=== PATIENT | male | born 1995 | race Asian ===

== ENCOUNTER 2019-05-17 13:17 | Inpatient (IN) | payer MEDICAID ==
[~2019-05-17] VITALS: Ht 170.2 cm; Wt 76.7 kg
[2019-05-17] VITALS (8 sets, daily range): BP systolic 93–128; BP diastolic 42–74
--- NOTE | 2019-05-17 13:20 | NUR ---
ED Nurse Note: pt was brought in by ambulance c/o syncope. pt stated that he is on a restaurant and suddenly fainted. denies head trauma, denies any pain. pt stated he loose consciousness. pt looks pale. pt stated he pass blood like stool last week and has history of blood transfusion for same reason. santhosh shah on bedside. will continue to monitor
--- NOTE | 2019-05-17 13:25 | NUR ---
ED Nurse Note: iv stablished on pt left ac, blood drawn and was sent to lab.
--- NOTE | 2019-05-17 13:34 | NUR ---
ED Nurse Note: ivf started and iv zofran given and pt able to tolerated well.
--- NOTE | 2019-05-17 13:50 | NUR ---
ED Nurse Note: pt was able to give urine sample and was sent to lab.
[2019-05-17 13:53] LABS: APPEARANCE,URINE CLEAR; BILIRUBIN, URINE NEGATIVE (NEGATIVE); COLOR,URINE PALE YELLOW; GLUCOSE, URINE (UA) NEGATIVE (NEGATIVE); KETONES,URINE NEGATIVE (NEGATIVE); LEUKOCYTE ESTERASE ,URINE NEGATIVE (NEGATIVE); NITRITE,URINE NEGATIVE (NEGATIVE); PH,URINE 6.5 (4.5-8.0); PROTEIN,URINE NEGATIVE (NEGATIVE); UROBILINOGEN,URINE NORMAL MG/DL (0.0-1.0)
[2019-05-17 13:57] LABS: ANION GAP 10 mmol/L (5-15); BLOOD UREA NITROGEN 9 mg/dL (7-18); CALCIUM 8.5 MG/DL (8.5-10.1); CARBON DIOXIDE 26 MMOL/L (21-32); CHLORIDE 108 MMOL/L (98-107); CREATININE 0.8 MG/DL (0.55-1.30); POTASSIUM 3.5 MMOL/L (3.5-5.1); SODIUM 144 MMOL/L (136-145)
--- NOTE | 2019-05-17 14:00 | NUR ---
ED Nurse Note: technical support manager on bedside.
[2019-05-17 14:12] LABS: ALANINE AMINOTRANSFERASE 15 U/L (12-78); ALBUMIN 3.7 G/DL (3.4-5.0); ALBUMIN/GLOBULIN RATIO 1.2 (1.0-2.7); ALKALINE PHOSPHATASE 36 U/L (46-116); ASPARTATE AMINO TRANSFERASE 18 U/L (15-37); BILIRUBIN,TOTAL 0.3 MG/DL (0.2-1.0)
--- NOTE | 2019-05-17 15:01 | NUR ---
ED Nurse Note: instrument and electrical technician on bedside
--- NOTE | 2019-05-17 15:11 | Diagnostic Imaging Report ---
Indication: Abdominal pain Technique: Grayscale and duplex Doppler imaging of the abdomen performed. Comparison: None Findings: The liver is unremarkable. Doppler interrogation of the main portal vein shows patency with hepatopedal, monophasic flow. There is no biliary ductal dilatation identified. CBD 3.7 mm. Gallbladder is unremarkable. Sonographic Bañuelos's sign was negative per technologist. There demonstrated part of the pancreas, aorta and IVC show no definite abnormalities. Both kidneys appear unremarkable. There is no hydronephrosis. IMPRESSION: No acute findings identified.
--- NOTE | 2019-05-17 15:12 | Diagnostic Imaging Report ---
Indication: Dyspnea Comparison: None A single view chest radiograph was obtained. Findings: Cardiomediastinal appearance is within normal limits for age. The lungs are clear. Pulmonary vascularity is appropriate. The diaphragmatic contour is smooth and costophrenic angles are sharp. No pleural effusions are identified. The bones are unremarkable. Impression: No acute findings
--- NOTE | 2019-05-17 15:15 | NUR ---
ED Nurse Note: pt went to ct with tech
--- NOTE | 2019-05-17 15:22 | NUR ---
ED Nurse Note: pt went back from ct
--- NOTE | 2019-05-17 15:51 | Diagnostic Imaging Report ---
Indication: Abdominal pain Technique: Continuous helical transaxial imaging of the abdomen and pelvis was obtained from the lung bases to the pubic symphysis during intravenous contrast administration. Coronal 2-D reformats were also obtained. Study obtained in a Siemens sensation [address] Automatic Exposure Control was utilized. Total Dose length Product (DLP): 572.[address] Dose Index Volume (CTDIvol): 10.75 mGy Comparison: None Findings: Normal retrocecal appendix is demonstrated. Somewhat poor contrast bolus is noted. The kidneys enhance normally. There is no hydronephrosis or stones. Gallbladder is unremarkable. The lung bases are clear. The liver and spleen and pancreas are unremarkable. There is no adrenal mass. Bowel gas pattern appears nonobstructive. Bladder is unremarkable. IMPRESSION: No acute findings The CT scanner at [facility] is accredited by the [employer] and the scans are performed using dose optimization techniques as appropriate to a performed exam including Automatic Exposure control.
[2019-05-17 15:54] LABS: INR 1.1 (0.9-1.1)
[2019-05-17 16:04] LABS: HEMATOCRIT 17.8 % (42.0-52.0); MEAN CORPUSCULAR VOLUME 61 FL (80-99); PLATELET COUNT 577 K/UL (150-450); RED BLOOD COUNT 2.89 M/UL (4.70-6.10); RED CELL DISTRIBUTION WIDTH 15.3 % (11.6-14.8); WHITE BLOOD COUNT 7.1 K/UL (4.8-10.8)
[2019-05-17 16:07] LABS: HEMOGLOBIN 4.8 G/DL (14.2-18.0)
--- NOTE | 2019-05-17 18:28 | NUR ---
ED Nurse Note: pt is admitted to hospital report given to hortencia staton
--- NOTE | 2019-05-17 18:35 | NUR ---
ED Nurse Note: pt jeremyas tranferd to floor, all belongings endorsed to enrique staton
--- NOTE | 2019-05-17 18:40 | NUR ---
NURSE NOTES: Received pt ,a new admission fr ED,brought to SDU per talya,awake,alert ,oriented,accompanied by LARRIMAN HELPER Le and a transporter in no resp distress ,no signs of pain or discomfort, alarm security or surveillance monitor showing SR,with ongoing Blood transfusion ,a unit of PRBC,tolerating well. skin warm and dry,and pale looking family members at bedside.
--- NOTE | 2019-05-17 19:00 | NUR ---
HAND-OFF: Report given to Stephen Salgado RN .
--- NOTE | 2019-05-17 19:20 | NUR ---
NURSE NOTES: Received patient from Serafin RN. Patient is awake and alert with no sign of acute distress. Room air, running PRBC and family at bed side. Bed at its lowest position, call light in reach and X2 bed rails up.
[2019-05-17] MEDS: D5NS 1,000 ML IV SCH (20:42)
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
[2019-05-18] VITALS: BP 96/49
[2019-05-18 02:43] LABS: HEMATOCRIT 24.1 % (42.0-52.0); HEMOGLOBIN 7.1 G/DL (14.2-18.0); MEAN CORPUSCULAR VOLUME 69 FL (80-99); PLATELET COUNT 516 K/UL (150-450); RED BLOOD COUNT 3.47 M/UL (4.70-6.10); RED CELL DISTRIBUTION WIDTH 23.7 % (11.6-14.8); WHITE BLOOD COUNT 5.6 K/UL (4.8-10.8)
[2019-05-18 02:49] LABS: ANION GAP 10 mmol/L (5-15); BLOOD UREA NITROGEN 8 mg/dL (7-18); CALCIUM 8.3 MG/DL (8.5-10.1); CARBON DIOXIDE 25 MMOL/L (21-32); CHLORIDE 109 MMOL/L (98-107); CREATININE 0.8 MG/DL (0.55-1.30); POTASSIUM 3.6 MMOL/L (3.5-5.1); SODIUM 143 MMOL/L (136-145)
[2019-05-18 04:00] VITALS: BP 119/59
[2019-05-18] MEDS: D5NS 1,000 ML IV SCH (04:39)
[2019-05-18] MEDS ORDERED: Bisacodyl EC 5mg tab ORAL ONE (06:45)
--- NOTE | 2019-05-18 06:46 | General Progress Note ---
Assessment/Plan Problem List: (1) Anemia ICD Codes: D64.9 - Anemia, unspecified SNOMED: [id number] (2) h/o bowel resection Assessment/Plan: stool ob transfuse one more unit fu CBC bowel regimen advance diet plan EGD and colonoscopy on Monday if needed Subjective ROS Limited/Unobtainable: Yes Allergies: Coded Allergies: No Known Allergies (Unverified , 05/17/19) Objective Last 24 Hour Vital Signs Date Time Temp Pulse Resp B/P (MAP) Pulse Ox O2 Delivery O2 Flow Rate FiO2 05/18/19 04:00 97.7 67 18 119/59 (79) 99 05/18/19 04:00 Room Air 05/18/19 03:50 55 05/18/19 00:00 97.1 59 16 96/49 (65) 100 05/18/19 00:00 Room Air 05/18/19 00:00 97.1 59 16 96/49 (65) 99 05/17/19 23:34 46 05/17/19 21:38 97.9 51 19 95/52 (66) 98 05/17/19 20:00 Room Air 05/17/19 20:00 97.8 55 18 97/56 (70) 100 05/17/19 19:54 95 05/17/19 19:40 Room Air 05/17/19 19:27 66 05/17/19 19:00 96.1 63 20 111/74 (86) 100 05/17/19 18:35 98.4 68 15 105/53 100 Room Air 05/17/19 18:22 98.4 68 15 105/53 100 Room Air 05/17/19 17:17 64 19 93/55 100 Room Air 05/17/19 15:56 67 16 109/49 100 05/17/19 14:42 75 16 128/68 98 Room Air 05/17/19 13:40 75 16 111/42 98 Room Air 05/17/19 13:14 76 16 111/42 (65) 98 Room Air Intake and Output 05/17/19 05/18/19 19:00 07:00 Intake Total 2000 ml 375 ml Output Total 600 ml Balance 2000 ml -225 ml Intake IV Total 2000 ml 375 ml Output Urine Total 600 ml # Voids 3 3 Laboratory Tests 05/17/19 13:25: Sodium Level 144, Potassium Level 3.5, Chloride Level 108H, Carbon Dioxide Level 26, Anion Gap 10, Blood Urea Nitrogen 9, Creatinine 0.8, Estimat Glomerular Filtration Rate > 60, Glucose Level 119H, Calcium Level 8.5, Total Bilirubin 0.3, Aspartate Amino Transf (AST/SGOT) 18, Alanine Aminotransferase ( ALT/SGPT) 15, Alkaline Phosphatase 36L, Total Protein 6.8, Albumin 3.7, Globulin 3.1, Albumin/Globulin Ratio 1.2, Serum Alcohol < 3 05/17/19 13:40: Urine Color Pale yellow, Urine Appearance Clear, Urine pH 6.5, Urine Specific [place] 1.010, Urine Protein Negative, Urine Glucose (UA) Negative, Urine Ketones Negative, Urine Blood Negative, Urine Nitrite Negative, Urine Bilirubin Negative, Urine Urobilinogen Normal, Urine Leukocyte Esterase Negative, Urine RBC 0, Urine WBC 0, Urine Squamous Epithelial Cells None, Urine Bacteria Occasional, Urine Mucus ModerateH, Urine Opiates Screen Negative, Urine Barbiturates Screen Negative, Phencyclidine (PCP) Screen Negative, Urine Amphetamines Screen Negative, Urine Benzodiazepines Screen Negative, Urine Cocaine Screen Negative, Urine Marijuana (THC) Screen PositiveH 05/17/19 14:49: White Blood Count 7.1, Red Blood Count 2.89L, Hemoglobin 4.8*L, Hematocrit 17.8L , Mean Corpuscular Volume 61L, Mean Corpuscular Hemoglobin 16.5L, Mean Corpuscular Hemoglobin Concent 26.8L, Red Cell Distribution Width 15.3H, Platelet Count 577H, Mean Platelet Volume 4.4L, Neutrophils (%) (Auto) , Lymphocytes (%) (Auto) , Monocytes (%) (Auto) , Eosinophils (%) (Auto) , Basophils (%) (Auto) , Differential Total Cells Counted 100, Neutrophils % ( Manual) 78H, Lymphocytes % (Manual) 16L, Monocytes % (Manual) 3, Eosinophils % ( Manual) 2, Basophils % (Manual) 1, Band Neutrophils 0, Platelet Estimate IncreasedH, Platelet Morphology Normal, Polychromasia 1+, Hypochromasia 3+, Anisocytosis 3+, Microcytosis 3+, Ovalocytes 1+ 05/17/19 15:14: Prothrombin Time 12.0H, Prothromb Time International Ratio 1.1, Activated Partial Thromboplast Time 23 05/18/19 02:32: White Blood Count 5.6, Red Blood Count 3.47L, Hemoglobin 7.1#L, Hematocrit 24.1# L, Mean Corpuscular Volume 69#L, Mean Corpuscular Hemoglobin 20.5L, Mean Corpuscular Hemoglobin Concent 29.6L, Red Cell Distribution Width 23.7H, Platelet Count 516H, Mean Platelet Volume 4.7L, Neutrophils (%) (Auto) , Lymphocytes (%) (Auto) , Monocytes (%) (Auto) , Eosinophils (%) (Auto) , Basophils (%) (Auto) , Differential Total Cells Counted 100, Neutrophils % ( Manual) 54, Lymphocytes % (Manual) 35, Monocytes % (Manual) 5, Eosinophils % ( Manual) 6H, Basophils % (Manual) 0, Band Neutrophils 0, Platelet Estimate IncreasedH, Platelet Morphology Normal, Hypochromasia 2+, Anisocytosis 2+, Ovalocytes 1+, Schistocytes 1+, Sodium Level 143, Potassium Level 3.6, Chloride Level 109H, Carbon Dioxide Level 25, Anion Gap 10, Blood Urea Nitrogen 8, Creatinine 0.8, Estimat Glomerular Filtration Rate > 60, Glucose Level 100, Calcium Level 8.3L Height (Feet): 5 Height (Inches): 7.00 Weight (Pounds): 169 General Appearance: alert EENT: normal ENT inspection Neck: supple Cardiovascular: normal rate Respiratory/Chest: decreased breath sounds Abdomen: normal bowel sounds, non tender, soft Extremities: non-tender Cortez Sorensen MD May 18, 2019 06:46
--- NOTE | 2019-05-18 07:26 | NUR ---
HAND-OFF: Report given to Dary WOODALL.
--- NOTE | 2019-05-18 07:27 | NUR ---
NURSE NOTES: received patient report from hortencia staton. patient is on bed awake. not in acute distress. per report from the manufacturing supervisor 2nd shift nurse, patient was di last night @ 35-38. blood transfusion received last night. bed is low and locked for safety. will follow plan of care.
--- NOTE | 2019-05-18 07:44 | Nephrology Progress Note ---
Assessment/Plan Assessment/Plan: A/P 1) Anemia- severe, appreciate GI evaluation - s/p bld tx. Hgb 4.8--->7.1 - if GI eval negative will consult Heme 2) Dehydration- resolved. DC IVFs 3) DVT prophylaxis- encourage ambulation Tx to telemetry Subjective Date patient seen: May 18, 2019 Time patient seen: 07:39 ROS Limited/Unobtainable: No Allergies: Coded Allergies: No Known Allergies (Unverified , 05/17/19) Subjective Patient resting. No overt distress Objective Last 24 Hour Vital Signs Date Time Temp Pulse Resp B/P (MAP) Pulse Ox O2 Delivery O2 Flow Rate FiO2 05/18/19 04:00 97.7 67 18 119/59 (79) 99 05/18/19 04:00 Room Air 05/18/19 03:50 55 05/18/19 00:00 97.1 59 16 96/49 (65) 100 05/18/19 00:00 Room Air 05/18/19 00:00 97.1 59 16 96/49 (65) 99 05/17/19 23:34 46 05/17/19 21:38 97.9 51 19 95/52 (66) 98 05/17/19 20:00 Room Air 05/17/19 20:00 97.8 55 18 97/56 (70) 100 05/17/19 19:54 95 05/17/19 19:40 Room Air 05/17/19 19:27 66 05/17/19 19:00 96.1 63 20 111/74 (86) 100 05/17/19 18:35 98.4 68 15 105/53 100 Room Air 05/17/19 18:22 98.4 68 15 105/53 100 Room Air 05/17/19 17:17 64 19 93/55 100 Room Air 05/17/19 15:56 67 16 109/49 100 05/17/19 14:42 75 16 128/68 98 Room Air 05/17/19 13:40 75 16 111/42 98 Room Air 05/17/19 13:14 76 16 111/42 (65) 98 Room Air Intake and Output 05/17/19 05/18/19 19:00 07:00 Intake Total 2000 ml 375 ml Output Total 600 ml Balance 2000 ml -225 ml Intake IV Total 2000 ml 375 ml Output Urine Total 600 ml # Voids 3 3 Laboratory Tests 05/17/19 13:25: Sodium Level 144, Potassium Level 3.5, Chloride Level 108H, Carbon Dioxide Level 26, Anion Gap 10, Blood Urea Nitrogen 9, Creatinine 0.8, Estimat Glomerular Filtration Rate > 60, Glucose Level 119H, Calcium Level 8.5, Total Bilirubin 0.3, Aspartate Amino Transf (AST/SGOT) 18, Alanine Aminotransferase ( ALT/SGPT) 15, Alkaline Phosphatase 36L, Total Protein 6.8, Albumin 3.7, Globulin 3.1, Albumin/Globulin Ratio 1.2, Serum Alcohol < 3 05/17/19 13:40: Urine Color Pale yellow, Urine Appearance Clear, Urine pH 6.5, Urine Specific [place] 1.010, Urine Protein Negative, Urine Glucose (UA) Negative, Urine Ketones Negative, Urine Blood Negative, Urine Nitrite Negative, Urine Bilirubin Negative, Urine Urobilinogen Normal, Urine Leukocyte Esterase Negative, Urine RBC 0, Urine WBC 0, Urine Squamous Epithelial Cells None, Urine Bacteria Occasional, Urine Mucus ModerateH, Urine Opiates Screen Negative, Urine Barbiturates Screen Negative, Phencyclidine (PCP) Screen Negative, Urine Amphetamines Screen Negative, Urine Benzodiazepines Screen Negative, Urine Cocaine Screen Negative, Urine Marijuana (THC) Screen PositiveH 05/17/19 14:49: White Blood Count 7.1, Red Blood Count 2.89L, Hemoglobin 4.8*L, Hematocrit 17.8L , Mean Corpuscular Volume 61L, Mean Corpuscular Hemoglobin 16.5L, Mean Corpuscular Hemoglobin Concent 26.8L, Red Cell Distribution Width 15.3H, Platelet Count 577H, Mean Platelet Volume 4.4L, Neutrophils (%) (Auto) , Lymphocytes (%) (Auto) , Monocytes (%) (Auto) , Eosinophils (%) (Auto) , Basophils (%) (Auto) , Differential Total Cells Counted 100, Neutrophils % ( Manual) 78H, Lymphocytes % (Manual) 16L, Monocytes % (Manual) 3, Eosinophils % ( Manual) 2, Basophils % (Manual) 1, Band Neutrophils 0, Platelet Estimate IncreasedH, Platelet Morphology Normal, Polychromasia 1+, Hypochromasia 3+, Anisocytosis 3+, Microcytosis 3+, Ovalocytes 1+ 05/17/19 15:14: Prothrombin Time 12.0H, Prothromb Time International Ratio 1.1, Activated Partial Thromboplast Time 23 05/18/19 02:32: White Blood Count 5.6, Red Blood Count 3.47L, Hemoglobin 7.1#L, Hematocrit 24.1# L, Mean Corpuscular Volume 69#L, Mean Corpuscular Hemoglobin 20.5L, Mean Corpuscular Hemoglobin Concent 29.6L, Red Cell Distribution Width 23.7H, Platelet Count 516H, Mean Platelet Volume 4.7L, Neutrophils (%) (Auto) , Lymphocytes (%) (Auto) , Monocytes (%) (Auto) , Eosinophils (%) (Auto) , Basophils (%) (Auto) , Differential Total Cells Counted 100, Neutrophils % ( Manual) 54, Lymphocytes % (Manual) 35, Monocytes % (Manual) 5, Eosinophils % ( Manual) 6H, Basophils % (Manual) 0, Band Neutrophils 0, Platelet Estimate IncreasedH, Platelet Morphology Normal, Hypochromasia 2+, Anisocytosis 2+, Ovalocytes 1+, Schistocytes 1+, Sodium Level 143, Potassium Level 3.6, Chloride Level 109H, Carbon Dioxide Level 25, Anion Gap 10, Blood Urea Nitrogen 8, Creatinine 0.8, Estimat Glomerular Filtration Rate > 60, Glucose Level 100, Calcium Level 8.3L Height (Feet): 5 Height (Inches): 7.00 Weight (Pounds): 169 General Appearance: no apparent distress, alert EENT: normal ENT inspection Neck: normal alignment, supple Cardiovascular: normal rate, regular rhythm Respiratory/Chest: lungs clear, normal breath sounds Abdomen: non tender, soft Edema: no edema noted Arm (L), no edema noted Arm (R), no edema noted Leg (L), no edema noted Leg (R), no edema noted Pedal (L), no edema noted Pedal (R), no edema noted Generalized Aleksander Leach MD May 18, 2019 07:44
[2019-05-18 08:00] VITALS: BP 113/55
[2019-05-18] MEDS ORDERED: Docusate 100mg cap ORAL SCH (09:00)
[2019-05-18] MEDS ORDERED: Tubing Blood Filter IV ONE (09:25)
[2019-05-18] MEDS ORDERED: D5NS 1000ml IV ONE (09:25)
[2019-05-18] MEDS ORDERED: Tubing IV Secondary IV ONE (09:25)
[2019-05-18] MEDS ORDERED: NS 275ml ONE (09:25)
--- NOTE | 2019-05-18 09:26 | NUR ---
NURSE NOTES: patient left facility by signing AMA. Risks of signing AMA and patients health condition were discussed but still insists on signing AMA. Patient stated that he cant missed work, and he has to come to work. explained to the patient that hospital and MD can provide medical certificate for his work. patient said he will just sign AMA. dr bellamy made aware of the AMA and Md said its ok. patient is AOX4, not in acute distress, belongings lists signed by the patient, everything were accounted for. patient left facility @ [id number].
[2019-05-18] MEDS ORDERED: Miralax 17gm pkt ORAL SCH (21:00)
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
--- NOTE | 2019-05-20 11:14 | NUR ---
*-* INSURANCE *-* ALL CLINICALS HAVE BEEN FAXED TO: CHARITY CRUZM:TOAN P:[phone] F:[phone]
== END 2019-05-18 09:26 | disposition left against medical advice (07) | DRG 253 ==
LOC: EDBD 13:17 → EMR 13:59 → EDBEDREQ 15:32 → EDBEDREQSVC 16:16 → EDBEDREQ 16:16 → 2W 16:32
PROC: 30233N1 Transfusion of Nonautologous Red Blood Cells into Peripheral Vein, Percutaneous Approach (ICD-10-PCS; principal; 2019-05-18)
DX: K92.2 Gastrointestinal hemorrhage, unspecified (principal); I95.9 Hypotension, unspecified; D50.0 Iron deficiency anemia secondary to blood loss (chronic); Z90.49 Acquired absence of other specified parts of digestive tract; E86.0 Dehydration; W34.00XS Accidental discharge from unspecified firearms or gun, sequela; R55 Syncope and collapse
CPT/HCPCS: 36415; 71045; 74177; 76700; 80048; 80053; 80307; 80329; 81001; 85007; 85025; 85610; 85730; 86850; 86900; 86901; 86920; 93005; 96361; 96374; 99285; J2405